=== PATIENT | female | born 1960 | race Caucasian/White ===

== ENCOUNTER 2020-03-11 19:36 | Emergency (ER) | payer MEDICAID, SELFPAY ==
--- NOTE | ~2020-03-11 | XR_ITS ---
EXAMINATION: XR shoulder RT min 2V INDICATION: Right shoulder and upper arm pain TECHNIQUE: Four views of the right shoulder are submitted. COMPARISON: None FINDINGS: Normal alignment. No fracture. Glenohumeral and acromioclavicular joint spaces are normal. Soft tissues are unremarkable. IMPRESSION: No acute osseous abnormality. Reviewed, dictated and finalized at location A.
[2020-03-11 19:38] VITALS: BP 151/70; PULSE 66; RESP 16; TEMP 36.8; O2SAT 98
--- NOTE | 2020-03-11 20:11 | ED.EXTPRO ---
HPI - Extremity Problem General Chief complaint: Extremity Problem,Nontraumatic Stated complaint: right arm pain Time Seen by Provider: 03/11/20 19:58 Source: patient Mode of arrival: ambulatory Limitations: no limitations History of Present Illness HPI Narrative: Patient is a 60-year-old female who presents to the emergency department with complaint of right shoulder/upper arm pain. Patient reports onset of symptoms approximately 2 months ago. Patient denies any specific injury that she can remember. Patient states she has a strong dog that pulls on the leash when she is walking the dog and has a tendency to jump in her lap and she pushes the dog off her lap. Patient thinks she may have injured her arm in that fashion, but is uncertain. Patient notes pain in the upper arm with certain movements that is intermittent. She was seen at an urgent care and prescribed some medication. She has not seen her primary care physician. Patient denies any neck pain, extremity numbness, extremity weakness. MD Complaint: extremity pain Radiation: none Relieving factors: immobilization Exacerbating factors: range of motion Associated symptoms: denies other symptoms Related Data Allergies Allergy/AdvReac Type Severity Reaction Status Date / Time Penicillins Allergy Mild Verified 08/29/09 14:28 Review of Systems Review of Systems: All systems reviewed & are unremarkable except as noted in HPI and below Musculoskeletal: Musculoskeletal: Reports arthralgias and Denies neck pain PMFSH Past Medical History Medical History (Updated 03/11/20 @ 22:04 by Niesha Barger MD) Bipolar disorder COPD (chronic obstructive pulmonary disease) Diabetes mellitus Hypertension Social History Social History (Updated 03/11/20 @ 20:15 by Niesha Barger MD) Smoking packs per day: 0.5 Smoking cigarettes per day: 10.0 Smoking status: Current every day smoker Tobacco type: cigarettes Exam Const: General: cooperative, no acute distress and alert Nutritional Appearance: well nourished Orientation/consciousness: patient oriented x3 Limitations: no limitations Resp: Effort & Inspection: normal respiratory effort Skin: General skin exam: normal color Neuro: General: patient oriented x3 Cognition (Neuro): normal cognition Speech: normal speech Extrem: General: normal to inspection, full ROM, no clubbing, cyanosis or edema and other (Normal strength and sensation upper extremities) Right upper extremity: shoulder/upper arm tenderness and abnormal ROM pain with active ROM in ABduction and in internal rotation Psych: Mental Status: mental status grossly normal Affect: normal affect Attitude: cooperative Course Course Emergency Course: Patient with acute becoming chronic right shoulder pain. Suspect possibility patient may have rotator cuff issue. Will refer to on-call orthopedic surgeon for further evaluation. X-rays unremarkable. Will do trial of anti-inflammatories as patient denies any history of renal insufficiency Vital Signs Vital signs: Vital Signs Temperature 98.3 F 03/11/20 19:38 Pulse Rate 66 03/11/20 19:38 Respiratory Rate 16 03/11/20 19:38 Blood Pressure 151/70 H 03/11/20 19:38 Pulse Oximetry 98 03/11/20 19:38 Temperature 98.3 F 03/11/20 19:38 Pulse Rate 66 03/11/20 19:38 Respiratory Rate 16 03/11/20 19:38 Blood Pressure 151/70 H 03/11/20 19:38 Pulse Oximetry 98 03/11/20 19:38 MDM - Extremity (Nontraumatic) Imaging Data Radiologist's impression: ITS Impressions Shoulder X-Ray 03/11/20 20:45 IMPRESSION: No acute osseous abnormality. Critical Care Time Critical Care Time Critical Care Time: No Discharge Plan Discharge Clinical Impression: Right shoulder pain Qualifiers: Chronicity: acute Qualified Code(s): M25.511 - Pain in right shoulder Patient Disposition: Home, Self-Care Condition: Stable Instructions: Shoulder Pain (ED) Bassem
== END 2020-03-11 22:13 | disposition home or self-care (01) ==
PROVIDERS: Emergency Provider Emergency Medicine; PCP Family Medicine
DX: M25.511 Pain in right shoulder (principal); J44.9 Chronic obstructive pulmonary disease, unspecified; I10 Essential (primary) hypertension; E11.9 Type 2 diabetes mellitus without complications; F17.210 Nicotine dependence, cigarettes, uncomplicated
CPT/HCPCS: 73030; 99283

== ENCOUNTER 2020-07-11 10:41 | Outpatient (CLI) | payer OTHER, SELFPAY ==
--- NOTE | ~2020-07-11 | MM_ITS ---
EXAMINATION: MM screening grupo BI w [facility] HISTORY: Screening mammogram TECHNIQUE: Craniocaudal and mediolateral oblique 3-D tomosynthesis images were obtained and synthetic 2-D images were generated. CAD analysis was submitted and interpreted. COMPARISON: No prior mammogram is available for comparison at this institution. BREAST PARENCHYMAL COMPOSITION: There are scattered areas of fibroglandular density. FINDINGS: There is no evidence of suspicious mass, calcification, or architectural distortion to sugg est malignancy in either breast. There has been no suspicious interval change. IMPRESSION: 1. No mammographic evidence of malignancy. 2. Recommend routine screening mammography in one year. BI-RADS Category 1: Negative Reviewed, dictated and finalized at location A.
== END 2020-07-11 10:42 | disposition home or self-care (01) ==
LOC: ANHIMG 10:45
PROVIDERS: PCP Family Medicine; Visit Provider Family Medicine
DX: Z12.31 Encounter for screening mammogram for malignant neoplasm of breast (principal)
CPT/HCPCS: 77063; 77067

== ENCOUNTER 2021-06-18 16:29 | Outpatient (CLI) | payer OTHER, SELFPAY ==
--- NOTE | ~2021-06-18 | CT_ITS ---
EXAMINATION: CT lung screening DATE: 06/18/2021 17:02 INDICATION: PERSONAL HISTORY OF NICOTINE DEPENDENCE TECHNIQUE: Computed tomography (CT) of the chest was performed without intravenous contrast. Addition al 3D reconstructions utilizing coronal maximum intensity projection (MIP) were performed. Automated exposure control and iterative reconstruction technique were employed. The dose-length product was 30 2.00 mGy-cm. COMPARISON: 08/03/2018 FINDINGS: Mild emphysema. 7 x 4 mm spiculated nodule at the anterior left apex at the site of similar sized kitty undglass opacity. A growing solid nodule with mean diameter of 5 and 6 mm would correspond to a lung RADS 4A lesion. Calcified left lower lobe nodule along the major fissure consistent with old granulom atous disease. Linear band of discoid atelectasis/scarring at the lingula. Additional atelectasis/sca rring at the medial aspect of the right middle lobe. Additional minimal atelectasis at the posterior sulci of the bilateral lower lobes. No pneumonia, pulmonary edema or pleural effusion. Heart size is normal. No pericardial effusion. Atherosclerotic coronary artery calcification. Thoracic aorta is nor mal in caliber. No pathologically enlarged thoracic lymphadenopathy. The visualized abdomen is unrema rkable. Mild to moderate cervical thoracic spondylosis. IMPRESSION: 1. Lung-RADS category 4A: Suspicious. Recommend 3 month follow-up low-dose noncontrast chest CT. 2. Mild emphysema. Reviewed, dictated and finalized at location A. IMPRESSION: 1. Lung-RADS category 4A: Suspicious. Recommend 3 month follow-up low-dose nonc ontrast chest CT. 2. Mild emphysema.
== END 2021-06-18 16:30 | disposition home or self-care (01) ==
LOC: ANHIMG 16:34
PROVIDERS: PCP Family Medicine; Visit Provider Family Medicine
DX: Z12.2 Encounter for screening for malignant neoplasm of respiratory organs (principal); Z87.891 Personal history of nicotine dependence; J43.9 Emphysema, unspecified
CPT/HCPCS: 71271

== ENCOUNTER 2021-07-01 12:07 | Outpatient (CLI) | payer OTHER, SELFPAY ==
[2021-07-01 12:53] LABS: Hematocrit 39.7 % (37.0-47.0); Hemoglobin 12.9 g/dL (12.0-15.0); Mean Corpuscular HGB Conc 32.5 g/dl (32-36); Mean Corpuscular Hemoglobin 29.7 pg (26-34); Mean Corpuscular Volume 91.3 fl (80-100); Mean Platelet Volume 11.9 fl (7.4-10.4); Platelet Count Result 176 k/mm3 (150-375); Red Blood Count 4.35 M/mm3 (4.2-5.4); Red Cell Distribution Width 14.2 % (11.5-14.5); White Blood Count 7.6 K/mm3 (4.5-10.0)
[2021-07-01 13:10] LABS: Alanine Aminotransferase 17 U/L (4-35); Albumin Level 4.4 g/dL (3.5-5.1); Alkaline Phosphatase 77 U/L (38-126); Anion Gap 7 mmol/L (8-16); Aspartate Amino Transferase 22 U/L (14-36); Bilirubin,Total 0.2 mg/dL (0.2-1.3); Blood Urea Nitrogen 24 mg/dL (7-17); Calcium 9.5 mg/dL (8.4-10.2); Carbon Dioxide 24 mmol/L (22-30); Chloride 110 mmol/L (98-107); Estimated Glomerular Filt Rate > 60; Glucose 118 mg/dL (65-110); Potassium 4.3 mmol/L (3.4-5.0); Sodium 141 mmol/L (137-145)
== END 2021-07-01 12:08 | disposition home or self-care (01) ==
PROVIDERS: PCP Family Medicine; Visit Provider Internal Medicine Critical Care Medicine
DX: R91.8 Other nonspecific abnormal finding of lung field (principal)
CPT/HCPCS: 36415; 80053; 85027

== ENCOUNTER 2021-07-20 13:36 | Outpatient (CLI) | payer OTHER, SELFPAY ==
--- NOTE | ~2021-07-20 | PE_ITS ---
EXAMINATION: PET skull to mid thigh DATE: 07/20/2021 15:24 INDICATION: Suspicious lung nodule on lung cancer screening CT TECHNIQUE: Blood glucose level was 93 mg/dL. 10.131 mCi of 18-fluorodeoxyglucose (18-FDG) was adminis tered i.v. Low dose computed tomography (CT) images were acquired from the base of the brain to the p roximal thighs for attenuation correction and anatomic localization. Positron emission tomography (PE T) images were acquired in the same distribution beginning 61 minutes after injection. The dose-lengt h product (DLP) was 817.08 mGy-cm. COMPARISON: Chest CTs dated 06/18/2021 and 08/03/2018 FINDINGS: Head/neck: No abnormal FDG uptake is identified. Low-level uptake in the oral cavity and vocal cords without suspicious CT correlate is likely physiologic. Chest: There is mild emphysema. Again seen is an 8 mm x 3 mm groundglass nodule in the left lung apex with an approximately 5 mm internal solid component. No associated FDG uptake is identified. There i s a new 10 mm nodule in the medial aspect of the right upper lobe which demonstrates low-level FDG up take. There is no pleural effusion or pneumothorax. No pathologically enlarged thoracic lymph nodes a re identified. The heart size is normal. Calcified coronary artery atherosclerosis is noted. Abdomen/pelvis/proximal thighs: No abnormal FDG uptake is identified. Physiologic FDG activity is pre sent in the bowel and urinary tract. A stone is present in the gallbladder which is mildly distended. The liver, spleen, pancreas, and adrenal glands are normal. The kidneys are unremarkable. There is a fat-containing umbilical hernia. There is calcified atherosclerosis of the aorta and many of the [facility] er arteries. No pathologically enlarged abdominal or pelvic lymph nodes are identified. There is no f ree intraperitoneal gas or evidence of bowel obstruction. Musculoskeletal: No abnormal FDG uptake is identified. There is moderate cervical, thoracic, and lumb ar spondylosis. IMPRESSION: 1. Left upper lobe groundglass nodule with small solid component but no definite abnormal FDG uptake. Absence of FDG uptake could be due to groundglass nature of the nodule in the small size of the maggy d component. Follow-up CT in three months is recommended. 2. New right upper lobe nodular opacity with low-level FDG uptake, most consistent with infection/inf lammation given the short interval since the comparison examination. 3. Cholelithiasis with mild gallbladder distention. Correlate for right upper quadrant tenderness. Reviewed, dictated and finalized at location A. IMPRESSION: 1. Left upper lobe groundglass nodule with small solid component but no definit e abnormal FDG uptake. Absence of FDG uptake could be due to groundglass nature of the nodule in the small size of the solid component. Follow-up CT in three months is recommended. 2. New right upper lobe nodular opacity with low-level FDG uptake, most consist ent with infection/inflammation given the short interval since the comparison e xamination. 3. Cholelithiasis with mild gallbladder distention. Correlate for right upper q uadrant tenderness.
[2021-07-20 13:58] LABS: Glucose Point of Care 93 mg/dl (65-105)
== END 2021-07-20 13:37 | disposition home or self-care (01) ==
LOC: ANHIMG 13:40
PROVIDERS: PCP Family Medicine; Visit Provider Internal Medicine Critical Care Medicine
DX: R91.8 Other nonspecific abnormal finding of lung field (principal); K80.20 Calculus of gallbladder without cholecystitis without obstruction
CPT/HCPCS: 78815; A9552

== ENCOUNTER 2021-07-23 12:11 | Outpatient (CLI) | payer OTHER, SELFPAY ==
--- NOTE | 2021-07-23 15:31 | WPDPFTINT ---
PFT Procedure Performed PFT Procedure Performed Spirometry with Pre/Post Bronchodilator Plethysmography (Lung Vol) Diffusing Cap (DLCO) Flow Vol Loop PFT Interpretation This is a pulmonary function test with pre and post-bronchodilator spirometry, plethysmography and diffusing capacity. The test was performed and results interpreted in accordance with the 2019 and 2005 ATS/ERS Task Force guidelines respectively using the Global Lung Function Initiative-2012 reference equations. Patient demonstrated good effort and cooperation. Reproducibility criteria were met. The quality of the pre bronchodilator spirometry maneuver was Grade A and post bronchodilator spirometry maneuver was Grade B. Findings: Spirometry: There is decreased maximal expiratory airflow at all lung volumes with concave expiratory flow tracing. The pre bronchodilator FVC is 3.01 L, 83% predicted. The pre bronchodilator FEV1 is 1.73 L, 61% predicted. The FEV1: FVC ratio of 57%. The post bronchodilator FVC is 3.19 L, representing a 6% increase. The post bronchodilator FEV1 is 1.79 L, representing a 4% increase. Plethysmography: The total lung capacity is 6.13 L, 106% predicted. Functional residual capacity is 3.61 L, 109% predicted. The residual volume is 3.12 L, 136% predicted. Diffusing capacity: The absolute diffusion capacity is 15.9, 68% predicted. Diffusing capacity corrected for alveolar volume is 3.56, 85% predicted. Impression: There is a moderate obstructive abnormality with significant improvement after inhaling a single dose of albuterol. The increase in residual volume is consistent with air trapping from an obstructive abnormality. The absolute diffusing capacity is mildly decreased and normalizes when corrected for alveolar volume. There are no prior studies for comparison
--- NOTE | 2021-07-23 15:35 | WPDSIXMINUTE ---
Six Minute Walk Procedure Procedure Performed Pulmonary Stress Test (6 min walk) Six Minute Walk This is a 6 minute walk test. The test was performed and interpreted in accordance with the 2014 ERS/ATS task force guidelines. Findings: The patient's resting room air oxygen saturation measured by pulse oximetry was 94% and her heart rate was 59 bpm. Patient ambulated for 427 meters and oxygen saturation remained 91 to 93%. Heart rate at the end of the study was 93 bpm. The patient did not qualify for supplemental oxygen at rest or with ambulation. There are no prior studies for comparison.
== END 2021-07-23 12:12 | disposition home or self-care (01) ==
PROVIDERS: PCP Family Medicine; Visit Provider Internal Medicine Critical Care Medicine
DX: R06.02 Shortness of breath (principal); J44.9 Chronic obstructive pulmonary disease, unspecified; R94.2 Abnormal results of pulmonary function studies
CPT/HCPCS: 94060; 94618; 94726; 94729

== ENCOUNTER 2021-10-25 11:17 | Outpatient (CLI) | payer OTHER, SELFPAY ==
--- NOTE | ~2021-10-25 | CT_ITS ---
EXAMINATION: CT diagnostic chest wo con EXAM DATE: 10/25/2021 11:33 INDICATION: PET CT abnormal 07/14/2021. TECHNIQUE: Spiral CT of the chest without contrast. Axial, coronal and sagittal images of the chest were reviewed. Coronal maximum intensity pixel images of chest reviewed. The dose-length product ( DLP) for this examination was 344.09 mGy-cm. The exposure was tailored according to patient size (au to mA exposure control), and iterative reconstruction (ASIR) was used as additional dose reduction te chnique. Comparison is made to prior examination from 08/03/2018, 07/20/2021, 06/18/2021. FINDINGS: The previous described 4 x 7 mm left apical spiculation is stable, indicated on axial imag e 27, consistent with postinfectious residua. On the PET/CT from 07/20/2021, there was a newly develop ed right upper lobe medial groundglass opacity, has resolved consistent with infectious/inflammatory etiology. Recommend returning to one year follow-up screening LDCT. Mild progression in the lingular scarring/atelectasis. There is moderate emphysema and mild hyperinfl ation. There are no pleural or pericardial effusions. Tracheobronchial tree is patent. There is no mediastinal, hilar or axillary lymphadenopathy. There is no pneumothorax. Heart normal in size . There is mild coronary arterial calcification, arterial sclerosis. Upper abdomen is unremarkable . Probable hemangiomas in T11 and T10, unchanged compared to 2018 and not demonstrating increased a ctivity on recent PET/CT. IMPRESSION: 1. Postinfectious residua; consider one-year follow-up LDCT. 2. Moderate emphysema. Mild hyperinflation. Reviewed, dictated and finalized at location A. UDMAN
== END 2021-10-25 11:18 | disposition home or self-care (01) ==
LOC: ANHIMG 11:20
PROVIDERS: PCP Family Medicine; Visit Provider Internal Medicine Critical Care Medicine
DX: R91.8 Other nonspecific abnormal finding of lung field (principal); J43.9 Emphysema, unspecified
CPT/HCPCS: 71250

== ENCOUNTER 2021-12-16 13:48 | Outpatient (CLI) | payer OTHER, SELFPAY ==
--- NOTE | ~2021-12-16 | MM_ITS ---
EXAMINATION: MM screening grupo BI w [facility] HISTORY: Screening mammogram TECHNIQUE: Craniocaudal and mediolateral oblique 3-D tomosynthesis images were obtained and synthetic 2-D images were generated. CAD analysis was submitted and interpreted. COMPARISON: 07/11/2020 bilateral screening mammogram BREAST PARENCHYMAL COMPOSITION: There are scattered areas of fibroglandular density. FINDINGS: There is no evidence of suspicious mass, calcification, or architectural distortion to sugg est malignancy in either breast. There has been no suspicious interval change. IMPRESSION: 1. No mammographic evidence of malignancy. 2. Recommend routine screening mammography in one year. BI-RADS Category 1: Negative Reviewed, dictated and finalized at location A. 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
== END 2021-12-16 13:49 | disposition home or self-care (01) ==
LOC: ANHIMG 13:51
PROVIDERS: PCP Nurse Practitioner Adult Health; Visit Provider Nurse Practitioner Adult Health
DX: Z12.31 Encounter for screening mammogram for malignant neoplasm of breast (principal)
CPT/HCPCS: 77063; 77067

== ENCOUNTER 2022-10-26 14:28 | Outpatient (CLI) | payer OTHER, SELFPAY ==
--- NOTE | ~2022-10-26 | CT_ITS ---
EXAMINATION:CT lung screening DATE: 10/26/2022 14:44 INDICATION: Lung cancer screening. Smoker who quit less than 1 year ago with 53 pack year history. TECHNIQUE: Computed tomography (CT) of the chest was performed without intravenous contrast. Automate d exposure control and iterative reconstruction technique were employed. The dose-length product (DLP ) was 147.98 mGy-cm. COMPARISON: Chest CT 10/25/2021 FINDINGS: There is stable mild scarring at the lung apices. There is a stable 3 mm nodule in left upp er lobe. There is moderate emphysema. There is mild atelectasis bilaterally. A calcified left lung no dule is consistent with old granulomatous disease. No pleural effusion. The heart size is normal. The re are coronary artery calcifications. No pericardial effusion. Partially visualized are gallstones i n the gallbladder. There is mild thoracic spondylosis. IMPRESSION: 1. Lung-RADS category 2: Benign appearance or behavior. Continue annual screening with noncontrast lo w-dose chest CT in 12 months. Reviewed, dictated and finalized at location A. GENCY DISPATCH OPERATOR IMPRESSION: 1. Lung-RADS category 2: Benign appearance or behavior. Continue annual screeni ng with noncontrast low-dose chest CT in 12 months.
== END 2022-10-26 14:29 | disposition home or self-care (01) ==
PROVIDERS: PCP Nurse Practitioner Adult Health; Visit Provider Internal Medicine Critical Care Medicine
DX: Z12.2 Encounter for screening for malignant neoplasm of respiratory organs (principal); Z87.891 Personal history of nicotine dependence
CPT/HCPCS: 71271